=== PATIENT | female | born 1995 | race Caucasian/White ===

== ENCOUNTER → 2025-01-16 | Outpatient (CLI) | payer BC, SELFPAY ==
[2025-01-16 14:09] LABS: Urea Breath Test Negative (Negative)
== END | disposition home or self-care (01) ==
LOC: COPL 11:34
PROVIDERS: PCP Registered Nurse; Referring Provider Registered Nurse; Visit Provider Registered Nurse
DX: Z00.00 Encounter for general adult medical examination without abnormal findings (principal); E07.9 Disorder of thyroid, unspecified; R10.9 Unspecified abdominal pain; R14.0 Abdominal distension (gaseous)
CPT/HCPCS: 83013; 83014

== ENCOUNTER → 2025-02-27 | Outpatient (CLI) | payer BC, SELFPAY ==
--- NOTE | 2025-02-27 12:00 | XR_ITS ---
Examination: Abdomen sonogram, complete Date and time of exam: February 27, 2025 1150 hrs. Indications: Epigastric pain beginning one year ago. Technique: Multiple real-time grayscale transabdominal sonographic images of the abdomen have been obtained. Findings: Multiple gallstones Normal gallbladder wall Normal common bile duct 0.3 cm Pancreatic head 2.6 cm Are not enlarged. Liver 14.3 cm fatty infiltration no focal liver lesions Normal hepatopedal portal venous flow Patent IVC Right kidney 9.9 cm in the cortex 1.6 cm Left kidney 11.2 cm cortex 1.7 cm Mild renal parenchymal scar formation Spleen 9.8 cm Impression: Cholelithiasis, negative for cholecystitis Fatty liver
== END | disposition home or self-care (01) ==
LOC: CDIM 11:47
PROVIDERS: Referring Provider Registered Nurse; Visit Provider Registered Nurse
DX: K80.20 Calculus of gallbladder without cholecystitis without obstruction (principal); K76.0 Fatty (change of) liver, not elsewhere classified
CPT/HCPCS: 76700

== ENCOUNTER 2025-03-18 13:08 | Outpatient (AMB) | payer BC, SELFPAY ==
[2025-03-18 13:27] VITALS: BP 110/72; PULSE 75; RESP 19; TEMP 36.5; O2SAT 98; BMI 29.2
--- NOTE | 2025-03-18 13:27 | PD.GSCLVISIT ---
Vital Signs - [facility] 03/18/25 13:27 Height 1.6 m Height Method Stated Weight 74.899 kg Weight Measurement Method Standing Scale BMI 29.2 BP 110/72 Blood Pressure Source Automatic Cuff Blood Pressure Location Left Upper Arm Position Sitting Respiration 19 Pulse 75 Pulse Source Monitor Temp 97.7 F Temp Source Temporal Artery Scan Pulse Oximetry (%) 98 Oxygen Delivery Method Room Air Med/Allergies Allergies & Medications Allergies NKA* Allergy (Uncoded 03/18/25 13:27) Medication Reconciliation No Known Home Medications 03/18/25 [History Confirmed 03/18/25] MA Intake Visit Data Collection New Patient or Established: New Patient (never been to [facility]) Seen by Clinical Staff ONLY (RN/MA): No Reason for Visit:: REFERRAL GALLSTONES Pain Present Currently: No PCP or OBGYN visit in last 3 months: Yes Hx Now: No Do You Feel Safe at Home: Yes Authorities Contacted: N/A Smoking Status Smoking Status: Never smoker Immunization / Flu Flu Vaccine in the Last 12 Months: No Flu Vaccine Exclusion Criteria: Refused by Patient Past Medical History Social History SMOKING STATUS: Smoking status: Never smoker HPI HPI Narrative 29F referred for symptomatic cholelithiasis. Pt reports last year during her first she noted episodes of RUQ pain, usually after eating greasy foods, which tend to be severe and associated with nausea/vomiting. She was treated with omeprazole which helped somewhat, and tested for H. pylori which was negative but also found to have gallstones. Pt has been minimizing greasy foods but recently had an episode after eating tacos. She denies any fever, jaundice or changes in bowel habits PMH: None PSHx: Csection Meds: None Allergies: NKDA Social hx: Nonsmoker ROS Review of Systems Systems Reviewed: All systems reviewed, normal except as documented Objective/Exam General General Appearance: alert, cooperative and well groomed Resp Respiratory exam: Absent respiratory distress Abdominal Abdominal exam: Present soft; Absent distention or tenderness Results US 02/27/25: multiple gallstones, normal gallbladder wall, normal CBD 0.3cm Assessment & Plan Diagnosis / Problem List (1) Symptomatic cholelithiasis: Status: Acute Assessment & Plan: 29F presenting with symptomatic cholelithiasis. I explained benefits/risks of surgery including need for conversion to open, bleeding, infection, and injury to nearby structures requiring further procedures including drainage, biliary stenting or in the most extreme case a major reconstructive biliary surgery which would require transfer to another facility. I also explained the possibility of postoperative diarrhea and hernia. 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
== END 2025-03-18 13:38 | disposition home or self-care (01) ==
PROVIDERS: PCP Registered Nurse; Referring Provider Registered Nurse; Supervising Provider Surgery; Visit Provider Surgery
DX: K80.20 Calculus of gallbladder without cholecystitis without obstruction (principal)
CPT/HCPCS: 99203; G0463

== ENCOUNTER 2025-04-17 05:40 | Day surgery (SDC) | payer BC, SELFPAY ==
[2025-04-16 07:43] VITALS: BMI 29.5
[2025-04-16 09:02] LABS: Basophils % (Auto) 1 % (0-2.5); Eosinophils # (Auto) 0.2 Thou/mm3 (0.0-0.5); Eosinophils % (Auto) 2 % (0-10); Hematocrit 40.7 % (36.0-46.0); Hemoglobin 14.4 g/dL (12.0-16.0); Immature Granulocytes % (Auto) 0 % (0-0); Immature Granulocytes Auto 0.01 Thou/mm3 (0.00-0.00); Lymphocytes # (Auto) 3.4 Thou/mm3 (1.0-4.8); Lymphocytes % (Auto) 49 % (10-50); Mean Corpuscular HGB Conc 35.4 g/dl (31.0-37.0); Mean Corpuscular Hemoglobin 33.1 pg (25.0-35.0); Mean Corpuscular Volume 94 fL (80-100); Monocytes # (Auto) 0.5 Thou/mm3 (0.0-0.8); Monocytes % (Auto) 6 % (0-12); Neutrophils # (Auto) 2.9 Thou/mm3 (1.8-7.7); Neutrophils % (Auto) 42 % (37-80); Nucleated Red Blood Cell % 0 /100 WBC (0); Platelet Count 216 Thou/mm3 (140-440); RDW Standard Deviation 40.1 fL (36.4-46.3); Red Blood Count 4.35 Miln/mm3 (4.00-5.20)
[2025-04-16 09:05] LABS: Prothrombin Time 10.9 Seconds (9.0-12.2)
[2025-04-16 09:06] LABS: Anion Gap 7 (7-16); BUN/Creatinine Ratio 10 Ratio (12-20); Blood Urea Nitrogen 8 mg/dL (9-23); Calcium 9.4 mg/dL (8.3-10.6); Carbon Dioxide 30.8 mMol/L (20.0-31.0); Chloride 104 mMol/L (98-107); Creatinine (Component) 0.8 mg/dL (0.6-1.3); Glucose 99 mg/dL (74-106); Osmolality,Calculated 281 (275-295); Potassium 4.6 mMol/L (3.4-5.1); Sodium 142 mMol/L (136-145); eGFR > 60 See Note
[2025-04-16 09:07] LABS: HCG,Qualitative Serum Negative
[2025-04-17] VITALS (7 sets, daily range): BP systolic 102–120; BP diastolic 59–87; PULSE 66–79; RESP 12–20; TEMP 36.3–37.1; O2SAT 98–100; BMI 29.5
--- NOTE | 2025-04-17 08:26 | ESOP_ITS ---
Date of Procedure 04/17/25 Pre Op Diagnosis Symptomatic cholelithiasis Post Op Diagnosis Same Procedure Laparoscopic cholecystectomy Findings Distended gallbladder Procedure Description After discussion of risks and benefits, patient was brought to the operating room, SCDs were placed and general anesthesia was induced. She received preope rative antibiotics and was prepped and draped in the usual sterile fashion. After timeout a supraumbilical incision was made with a #15 blade and the skin was elevated with towel clamps. A Veress needle was placed through the incision and proper positioning was confirmed with a drop test. At that point the abdomen was insufflated to 15 mmHg. The Veress needle was then exchanged for a 5 mm camera using a Visiport technique. There were no signs of injury from the point of entry. 3 additional ports were placed under direct vision, one 12mm at the epigastrium, one 5mm right subcostal and one 5mm right anterior axillary line. Patient was placed in reverse Trendelenburg. The fundus of the gallbladder was grasped retracted cephalad and the infundibulum was grasped and retracted laterally. Using blunt dissection the critical view of safety was achieved and the cystic duct and cystic artery were clipped and transected in the usual fashion. The gallbladder was removed from the gallbladder bed using electrocautery. Hemostasis of the gallbladder bed was achieved with electrocautery. The specimen was removed in an Endo Catch bag via the epigastric port and the epigastric fascia was closed with 0 Vicryl suture using a Dusty-Luis Enrique. Pneumoperitoneum was released and ports were removed under direct vision. Incisions were irrigated and infiltrated with half percent Marcaine for a total of 29 cc. Incisions were closed with 4 Monocryl and reinforced with Dermabond. Patient was extubated and brought to PACU in stable condition Pathology / specimen Other (Gallbladder) Estimated Blood Loss 25 Surgeon Leena Hancock MD Surgical Staff Operation Date: 04/17/25 07:30 Case Staff SHOW WORKER: Petar Babcock RNcylinder press operator: Galina Almaraz
--- NOTE | 2025-04-17 08:27 | ESDS_ITS ---
Planned Discharge Date 04/17/25 DS: Providers Provider Primary care physician: Laurence Jaquez NP Attending Provider on Admission: Leena Hancock MD Attending Provider on DC: Leena Hancock MD Discharging Provider: Leena Hancock MD Diagnosis Discharge Diagnosis (1) Symptomatic cholelithiasis: Status: Acute Problem List Completed Was Problem List Reviewed/Reconciled?: Yes Exam Vital Signs Temp Pulse Resp BP Pulse Ox 98.7 F 78 12 110/59 L 98 04/17/25 06:07 04/17/25 06:07 04/17/25 06:07 04/17/25 06:07 04/17/25 06:07 Discharge Plan Plan Patient Disposition: HOME (Self Care) Prescriptions/Referrals Prescriptions/Med Rec: New oxycodone-acetaminophen [Endocet] 5-325 mg tablet 1 tab PO Q6H MDD 6 tabs PRN (Reason: pain) Qty: 10 0RF Referrals: Leena Hancock MD [Physician] - (You will receive a phone call to confirm a follow-up appointment with me in 2 weeks) Laurence Jaquez NP [Primary Care Provider] - Patient/Caregiver Discharge Instructions Other Discharge Activity Instructions:: You may resume showering in 2 days, on 04/19 It is okay to get incisions wet, pat them dry after Avoid bathing or swimming for 2 weeks Your incisions have skin glue on them which will fall off on its own and does not need to be replaced Your stitches will not need to be removed During the surgery we fill your abdomen with air in order to see the structures. Some of this air tends to linger and cause pain that is referred to the shoul cassidy and/or pain with deep breaths. This will improve with time. Being out of bed and walking helps the air to absorb faster If you develop worsening pain, nausea/vomiting, fever or jaundice please seek care in ER Education Materials: Anesthesia: General Anesthesia, Surgery Anesthesia After, Cholecystectomy Laparoscopic Dc, Preventing Surgical Site Infections, Skin Adhesive Wound Care Instructions, [facility] Instructions- Micronesian Print Language: Micronesian Stand Alone Forms: Myla Award Info., Patient Portal Info Letter Discharge Order Discharge Orders: Discharge (Routine); Ordered 04/17/25 Ordered By: Leena Hancock Results Results: Laboratory Laboratory results: results reviewed Results: Imaging US - abdomen: report reviewed Procedures Procedure Date 04/17/25 Procedures Laparoscopic cholecystectomy
--- NOTE | 2025-04-17 08:37 | SUR.PHASEI ---
0837: Pt. arrived with oral airway in place, vitals stable, breathing unlabored, no signs of distress, x4 dermabond sites to ABD CDI, no active bleed noted, report received from Petar REY and Valencia PHILLIPS.
--- NOTE | 2025-04-17 09:29 | SUR.PHASEII ---
0929: Pt. AAOx4, vitals stable, breathing unlabored, no complaint of pain or nausea, x4 dermabond sites to ABD CDI, no active bleed noted, pt. tolerated sips of water well, pt. ambulated to wheelchair with steady gait and no assist, no complications. Gave discharge instructions to the pt. and her ride, both verbalized understanding and had no further questions. Pt. left with all personal belongings.
== END 2025-04-17 09:29 | disposition home or self-care (01) ==
PROVIDERS: Anesthesiology; PCP Registered Nurse; Referring Provider Surgery; Visit Provider Surgery
PROC: 0FT44ZZ Resection of Gallbladder, Percutaneous Endoscopic Approach (ICD-10-PCS; CPT 47562; principal; 2025-04-17 07:30)
DX: K80.10 Calculus of gallbladder with chronic cholecystitis without obstruction (principal)
CPT/HCPCS: 47562; 36415; 80048; 84703; 85025; 85610; 85730; A4217; A4649; J0131; J0694; J1100; J2250; J2405; J2704; J3010; J3490

== ENCOUNTER 2025-04-29 10:40 | Outpatient (AMB) | payer BC, SELFPAY ==
--- NOTE | 2025-04-29 10:49 | PD.GSCLVISIT ---
Vital Signs - [facility] 04/29/25 10:50 Height 1.6 m Height Method Stated Weight 75.523 kg Weight Measurement Method Standing Scale BMI 29.5 BP 98/65 Blood Pressure Source Automatic Cuff Blood Pressure Location Left Upper Arm Position Sitting Respiration 18 Pulse 80 Pulse Source Monitor Temp 97.6 F Temp Source Temporal Artery Scan Pulse Oximetry (%) 98 Oxygen Delivery Method Room Air Med/Allergies Allergies & Medications Allergies No Known Allergies Allergy (Verified 04/29/25 10:51) Medication Reconciliation oxycodone-acetaminophen 5 mg-325 mg tablet (Endocet) 1 tab PO Q6H PRN pain #10 tabs 04/17/25 [Rx Confirmed 04/29/25] MA Intake Visit Data Collection New Patient or Established: Established Patient (seen at [facility] within 3 years) Seen by Clinical Staff ONLY (RN/MA): No Reason for Visit:: LAB ELAINA F/U Pain Present Currently: No PCP or OBGYN visit in last 3 months: Yes Hx Now: No Do You Feel Safe at Home: Yes Authorities Contacted: N/A Smoking Status Smoking Status: Never smoker Immunization / Flu Flu Vaccine in the Last 12 Months: No Flu Vaccine Exclusion Criteria: No Exclusion Criteria Past Medical History Past Medical History NEUROLOGIC: Negative Neurological Disorders or Seizures CARDIAC: Negative Cardiac Disorders or Congestive Heart Failure RESPIRATORY: Negative Chronic Obstructive Pulmonary Disease (COPD) GASTROINTESTINAL: Positive Gastrointestinal Disorders, Gall Bladder Disease and Obesity GENITOURINARY: Negative Genitourinary Disorders or Renal Disease REPRODUCTIVE: Positive Previous Pregnancies ENDOCRINE: Negative Endocrine Disorders, Diabetes Mellitus Type 1 or Diabetes Mellitus Type 2 HEMATOLOGIC: Negative Blood Disorders OTHER HISTORY: Negative Hospitalization, Autoimmune Disease, Shingles, Blood Transfusions, Blood Transfusion Reaction, Anesthesia Reactions or Cancer Family History FAMILY HISTORY: Positive Family Cancer; Negative Family Psychiatric Problems, Family Respiratory Disorders, Family Cardiac Disorders, Family Gastrointestinal Problems, Family Surgery or Family Anesthesia Reaction Surgical History SURGICAL: Positive Section (x1) Social History SMOKING STATUS: Smoking status: Never smoker ALCOHOL: Alcohol Intake: Never HOUSING: Housing: House HPI HPI Narrative 30F s/p lap elaina 04/17 for symptomatic cholelithiasis here for planned follow up. Pt states she used the percocet for the first few days after surgery but only 6 tabs in total, and as of now she feels well with no pain. She denies any fever or jaundice, is eating well and initially did have constipation followed by diarrhea but now her BMs are back to her usual ROS Review of Systems Systems Reviewed: All systems reviewed, normal except as documented Objective/Exam General General Appearance: alert, cooperative and well groomed Resp Respiratory exam: Absent respiratory distress Abdominal Abdominal exam: Present soft and incision (c/d/i, no erythema, no fluctuance or tenderness); Absent distention or tenderness Results Pathology of gallbladder reviewed Assessment & Plan Diagnosis / Problem List (1) Chronic cholecystitis: Status: Acute Assessment & Plan: 30F s/p lap elaina 04/17, recovering well Plan: Follow up as needed Office Procedures GNS Level of Care Nursing/Assessment Patient Status: Established Patient Nursing Assessment/Reassesment: Medication Reconciliation, Update PMH in EMR and Vital Signs Coordination of Care: Complex Care and Chronic Disease 1-5, Consent,records obtained, informed consent, Education Simp Pt/Fam, Results/Orders obtained and Staff clarify orders Established Patient Charge Established Patient Point Assignment: 90 Established Patient Point Charge: EP Level 3 (80-115) Patient Portal Questionaires Social History Living Situation History Housing: House Tobacco History Smoking Status: Never smoker Alcohol History Alcohol Intake: Never Domestic Abuse History Do You Feel Safe at Home: Yes Review of Systems Report any current symptoms Only answer those that you have currently: Past Medical History Past Medical History Have you ever been diagnosed with any of the following: Neurological Problems Seizures: No Cardiology Problems Congestive Heart Failure: No Respiratory Problems Chronic Obstructive Pulmonary Disease (COPD): No Stomache/Intestinal Problems Gall Bladder Disease: Yes Obesity: Yes Genital/Urinary Problems Renal Disease: No Reproductive Problems Previous Pregnancies: Yes Endocrine Problems Diabetes Mellitus Type 1: No Diabetes Mellitus Type 2: No Other Problems Hospitalization: No Autoimmune Disease: No Shingles: No Blood Transfusions: No Blood Transfusion Reaction: No Anesthesia Reactions: No Cancer: No
[2025-04-29 10:50] VITALS: BP 98/65; PULSE 80; RESP 18; TEMP 36.4; O2SAT 98; BMI 29.5
== END 2025-04-29 10:57 | disposition home or self-care (01) ==
LOC: HODSRG 10:40
PROVIDERS: PCP Registered Nurse; Referring Provider Registered Nurse; Supervising Provider Surgery; Visit Provider Surgery
DX: Z48.815 Encounter for surgical aftercare following surgery on the digestive system (principal)
CPT/HCPCS: 99213; G0463